=== PATIENT | male | born 1990 | race Two or more races ===

== ENCOUNTER 2023-12-31 13:14 | Emergency (ER) | payer MEDICAID ==
[~2023-12-31] VITALS: Ht 190.5 cm; Wt 86.2 kg
--- NOTE | 2023-12-31 13:48 | NUR ---
SHAKING AND NO APPETITE X 1 WEEK
--- NOTE | 2023-12-31 13:55 | NUR ---
at bed side for eval
--- NOTE | 2023-12-31 14:10 | NUR ---
taken to xray room by tech
[2023-12-31] MEDS ORDERED: KETOROLAC TROMETHAMINE INJ 30 MG/ML VIAL ONE (14:30)
[2023-12-31] MEDS: ONDANSETRON HCL/PF 4 MG/2 ML VIAL IVP ONE (14:30)
[2023-12-31] MEDS: KETOROLAC TROMETHAMINE 15 MG/ML VIAL IV ONE (14:30)
[2023-12-31] MEDS ORDERED: ONDANSETRON HCL/PF 4 MG/2 ML VIAL ONE (14:30)
[2023-12-31] MEDS: IV NS 0.9% 1,000 ML BAG IV ONE ×2 (14:30→16:30)
--- NOTE | 2023-12-31 14:30 | NUR ---
blood sample sent to lab
[2023-12-31 14:38] LABS: BASOPHILS # (AUTO) 0.1 K/uL (0.0-0.2); BASOPHILS % (AUTO) 0.8 % (0.0-2.0); EOSINOPHILS % (AUTO) 0.4 % (0.0-6.0); HEMATOCRIT 45 % (39-51); HEMOGLOBIN 14.7 g/dL (13.5-17.5); LYMPHOCYTES # (AUTO) 1.6 K/uL (0.8-4.8); LYMPHOCYTES % (AUTO) 16.5 % (20.0-44.0); MEAN CORPUSCULAR HEMOGLOBIN 26 PG (26.0-33.0); MEAN CORPUSCULAR HGB CONC 33 g/dl (31.0-36.0); MEAN CORPUSCULAR VOLUME 79 fL (80-96); MONOCYTES # (AUTO) 0.9 K/uL (0.1-1.30); MONOCYTES % (AUTO) 9.5 % (2.0-12.0); NEUTROPHILS # (AUTO) 7.2 K/uL (1.8-8.9); NEUTROPHILS % (AUTO) 72.8 % (43.0-81.0); PLATELET COUNT (AUTO) 239 K/uL (150-450); RED BLOOD CELL COUNT(AUTO) 5.63 MIL/uL (4.5-6.0); RED CELL DISTRIBUTION WIDTH 13.8 % (11.5-15.0); WHITE BLOOD COUNT (AUTO) 9.9 K/uL (4.3-11.0)
[2023-12-31 15:09] LABS: ALBUMIN 3.4 g/dL (3.4-5.0); BILIRUBIN,DIRECT 0.1 mg/dL (0.0-0.2); BILIRUBIN,TOTAL 0.5 mg/dL (0.2-1.0); CALCIUM, SERUM 10.3 mg/dL (8.5-10.1); CREATININE 1.2 mg/dL (0.6-1.3); POTASSIUM 3.8 mmol/L (3.5-5.1); TOTAL PROTEIN, SERUM 8.6 g/dL (6.4-8.2)
[2023-12-31] MEDS ORDERED: IOHEXOL-300 100 ML VIAL IV ONE (17:34)
[2023-12-31] MEDS ORDERED: CT SWABBABLE VALVE TRANS SET 1 EA INFUS.SET MC ONE (17:34)
[2023-12-31] MEDS ORDERED: IV NS 0.9% 250 ML IV ONE (17:37)
[2023-12-31] MEDS ORDERED: IBUP-1953 PO (18:28)
[2023-12-31 18:36] VITALS: BP 121/81; TEMP 98.6; O2SAT 98
--- NOTE | 2023-12-31 18:36 | NUR ---
Patient discharged to home in stable condition. Written and verbal after care instructions given. Patient verbalizes understanding of instruction.
--- NOTE | 2023-12-31 18:36 | NUR ---
IV removed. Catheter intact and site benign. Pressure and 4x4 applied to site. No bleeding noted.
== END 2023-12-31 18:36 | disposition home or self-care (01) ==
LOC: ER 13:33
DX: I88.0 Nonspecific mesenteric lymphadenitis (principal)
CPT/HCPCS: 99285; 74177; 96374; 96361; 71045; 96375; 93005; 85025; 80048; 83690; 80076; 36415; 84443; 74176; J1885; J2405; J7030; J7050; Q9967